=== PATIENT | male | born 1965 | race Caucasian/White ===

== ENCOUNTER 2021-11-17 00:51 | Emergency (ER) | payer BC, MEDICAID ==
[~2021-11-17] VITALS: Ht 188 cm; Wt 111.1 kg
[~2021-11-17 00:51] MED LIST: DIPH25TA62 PO; Insulin Glargine,Hum.rec.anlog SQ; SULF1TAB48 PO
--- NOTE | 2021-11-17 02:09 | NUR ---
DR. MATA AT BEDSIDE, MSE IN PROGRESS.
[2021-11-17] MEDS ORDERED: LIDOCAINE 1%-EPI 1:100,000 20 ML VIAL ONE (02:15)
[2021-11-17] MEDS ORDERED: LIDOCAINE HCL 1% 20 ML VIAL IJ ONE (02:15)
[2021-11-17] MEDS ORDERED: TDAP DIPH,PERTUSS,TET VAC/PF 0.5 ML DISP.SYRIN IM ONE ×2 (02:15→02:22)
--- NOTE | 2021-11-17 03:04 | NUR ---
Patient discharged to home in stable condition. Written and verbal after care instructions given. Patient verbalizes understanding of instructions. Stressed follow up or return to ER for worsening s/s. Steady gait, denies any pain/discomfort upon discharge.
[2021-11-17 03:05] VITALS: BP 144/76
== END 2021-11-17 03:06 | disposition home or self-care (01) ==
LOC: ER 00:59
DX: S81.812A Laceration without foreign body, left lower leg, initial encounter (principal); W22.8XXA Striking against or struck by other objects, initial encounter; Y92.89 Other specified places as the place of occurrence of the external cause; F17.210 Nicotine dependence, cigarettes, uncomplicated; E11.9 Type 2 diabetes mellitus without complications; Z83.3 Family history of diabetes mellitus; Z79.4 Long term (current) use of insulin; Z88.2 Allergy status to sulfonamides; Z86.718 Personal history of other venous thrombosis and embolism
CPT/HCPCS: 12002; 90471; 90715; 99283; J3490; A4663